=== PATIENT | female | born 1965 | race African-American/Black ===

== ENCOUNTER 2018-04-21 20:01 | Inpatient (IN) | payer MEDICAID ==
[~2018-04-21] VITALS: Ht 165.1 cm; Wt 156.0 kg
[2018-04-21 20:11] VITALS: Ht 165.1 cm; Wt 156.0 kg
[2018-04-21 22:04] LABS: BASOPHIL % 0.2 % (0-2); PLATELET COUNT 249 x10^3mcL (130-400)
[2018-04-21 22:06] LABS: RED CELL DISTRIBUTION WIDTH 16.7 % (11.5-14.5)
[2018-04-21 22:25] LABS: microscopic required? NO
[2018-04-21 22:33] LABS: ALBUMIN 3.4 g/dL (3.4-5.0); ALKALINE PHOSPHATASE 97 U/L (46-116); ALT/SGPT 13 U/L (14-59); AST/SGOT 12 U/L (15-37); BILIRUBIN TOTAL 0.2 mg/dL (0.20-1.00); CALCIUM 10.4 mg/dL (8.5-10.1); CARBON DIOXIDE 27.8 mmol/L (21-32); CHLORIDE SERUM 103 mmol/L (98-107); CREATININE SERUM 0.9 mg/dL (0.6-1.0); GFR1 > 60 mL/min; GLUCOSE SERUM 97 mg/dL (74-106); LIPASE 169 IU/L (73-393); MAGNESIUM 2.1 mg/dL (1.8-2.4); POTASSIUM SERUM 3.8 mmol/L (3.5-5.1); SODIUM SERUM 139 mmol/L (136-145)
[2018-04-21 22:35] LABS: TOTAL PROTEIN, SERUM 8.4 g/dL (6.4-8.2)
[2018-04-21 22:50] LABS: UA SPECIFIC GRAVITY 1.015 (1.005-1.035); urine erythrocyte NEGATIVE (NEGATIVE)
[2018-04-22] MEDS ORDERED: NEU300 (06:25)
[2018-04-22] MEDS ORDERED: TRAZODONE50 M1 PO (06:26)
[2018-04-22] MEDS ORDERED: NORCO1 TA2 PO (06:27)
[2018-04-22 07:52] VITALS: BP 137/52
[2018-04-22 12:22] VITALS: BP 156/79
[2018-04-22 12:34] VITALS: BP 137/52
[2018-04-22 13:21] LABS: AMPHETAMINE QUAL UR NONE DETECTED (See below)
[2018-04-22 13:22] LABS: CHOLESTEROL/HDL RATIO 3.5; MAGNESIUM 1.9 mg/dL (1.8-2.4); PHOSPHOROUS 2.6 mg/dL (2.5-4.9)
[2018-04-22 13:33] LABS: FREE T4 0.93 ng/dL (0.76-1.46); FREE THYROXINE INDEX 1.8 ug/dL (1.4-4.5); T4(THYROXINE) 5.5 ug/dL (4.7-13.3)
[2018-04-22 13:41] LABS: T3 TOTAL 0.96 ng/mL
[2018-04-22 17:24] VITALS: BP 150/69
[2018-04-22 20:39] VITALS: BP 131/69
[2018-04-23 05:21] VITALS: BP 139/70
[2018-04-23 06:31] LABS: CALCIUM 9.3 mg/dL (8.5-10.1); CHLORIDE SERUM 105 mmol/L (98-107); CREATININE SERUM 0.7 mg/dL (0.6-1.0); GFR1 > 60 mL/min; GLUCOSE SERUM 97 mg/dL (74-106); PHOSPHOROUS 3.2 mg/dL (2.5-4.9); POTASSIUM SERUM 4.1 mmol/L (3.5-5.1); SODIUM SERUM 141 mmol/L (136-145)
[2018-04-23 06:35] LABS: BASOPHIL % 0.6 % (0-2); PLATELET COUNT 240 x10^3mcL (130-400)
[2018-04-23 07:24] LABS: RED CELL DISTRIBUTION WIDTH 16.3 % (11.5-14.5)
[2018-04-23 09:30] VITALS: BP 114/68
[2018-04-23 12:57] VITALS: BP 136/78
[2018-04-23 17:54] VITALS: BP 130/81
[2018-04-23 21:04] VITALS: BP 136/69
[2018-04-24 06:08] VITALS: BP 115/79
[2018-04-24 06:21] LABS: BASOPHIL % 0.6 % (0-2); PLATELET COUNT 261 x10^3mcL (130-400)
[2018-04-24 06:24] LABS: CALCIUM 9.7 mg/dL (8.5-10.1); CARBON DIOXIDE 31.4 mmol/L (21-32); CHLORIDE SERUM 105 mmol/L (98-107); CREATININE SERUM 0.7 mg/dL (0.6-1.0); GFR1 > 60 mL/min; GLUCOSE SERUM 96 mg/dL (74-106); PHOSPHOROUS 3.6 mg/dL (2.5-4.9); POTASSIUM SERUM 4.1 mmol/L (3.5-5.1); RED CELL DISTRIBUTION WIDTH 15.6 % (11.5-14.5); SODIUM SERUM 141 mmol/L (136-145)
[2018-04-24 09:05] VITALS: BP 133/100
[2018-04-24 11:39] VITALS: BP 135/63
[2018-04-24] MEDS ORDERED: L20 PO (12:08)
[2018-04-24] MEDS ORDERED: IPRATROPIUM BROM3 M2 HHN (12:08)
[2018-04-24] MEDS ORDERED: COL100 PO (12:09)
[2018-04-24 17:14] VITALS: BP 145/76
[2018-04-24 20:41] VITALS: BP 122/67
[2018-04-25 05:42] VITALS: BP 121/76
[2018-04-25 08:59] VITALS: BP 115/68
[2018-04-25 10:27] LABS: CALCIUM 10.1 mg/dL (8.5-10.1); CARBON DIOXIDE 31.1 mmol/L (21-32); CHLORIDE SERUM 104 mmol/L (98-107); CREATININE SERUM 0.8 mg/dL (0.6-1.0); GFR1 > 60 mL/min; GLUCOSE SERUM 117 mg/dL (74-106); POTASSIUM SERUM 4.3 mmol/L (3.5-5.1); SODIUM SERUM 139 mmol/L (136-145)
[2018-04-25 11:58] VITALS: BP 124/49
[2018-04-25 16:44] VITALS: BP 124/45
[2018-04-25 20:30] VITALS: BP 124/61
[2018-04-26 05:32] VITALS: BP 103/50
[2018-04-26 09:35] VITALS: BP 109/53
[2018-04-26 11:27] LABS: CALCIUM 10.8 mg/dL (8.5-10.1); CHLORIDE SERUM 102 mmol/L (98-107); CREATININE SERUM 0.8 mg/dL (0.6-1.0); GFR1 > 60 mL/min; GLUCOSE SERUM 93 mg/dL (74-106); POTASSIUM SERUM 4.4 mmol/L (3.5-5.1); SODIUM SERUM 137 mmol/L (136-145)
[2018-04-26 11:57] LABS: BASOPHIL % 0.3 % (0-2); PLATELET COUNT 250 x10^3mcL (130-400)
[2018-04-26 11:58] LABS: RED CELL DISTRIBUTION WIDTH 16.8 % (11.5-14.5)
[2018-04-26 12:39] VITALS: BP 130/59
[2018-04-26 17:13] VITALS: BP 129/58
[2018-04-26 20:54] VITALS: BP 135/73
[2018-04-27 04:43] VITALS: BP 120/68
[2018-04-27 08:43] VITALS: BP 121/56
[2018-04-27 13:43] VITALS: BP 122/66
[2018-04-27 16:45] VITALS: BP 125/69
[2018-04-27 20:48] VITALS: BP 144/89
[2018-04-28 05:33] VITALS: BP 117/49
[2018-04-28 08:27] VITALS: BP 115/71
[2018-04-28 09:00] VITALS: BP 115/71
[2018-04-28 13:42] VITALS: BP 110/69
[2018-04-28] MEDS ORDERED: TOR15I IM (15:44)
[2018-04-28 17:06] VITALS: BP 120/77
[2018-04-28 20:29] VITALS: BP 113/62
[2018-04-29 05:06] VITALS: BP 127/65
[2018-04-29 08:48] VITALS: BP 138/83
[2018-04-29 12:38] VITALS: BP 129/52
[2018-04-29] MEDS ORDERED: L20 PO (14:27)
[2018-04-29 15:49] VITALS: BP 129/52
== END 2018-04-29 16:40 | DRG 351 ==
LOC: ED 20:01 → DU 04-22 06:18
PROVIDERS: Emergency Medicine; Family Medicine; Internal Medicine
DX: M17.12 Unilateral primary osteoarthritis, left knee (principal); I50.33 Acute on chronic diastolic (congestive) heart failure; M32.9 Systemic lupus erythematosus, unspecified; R45.851 Suicidal ideations; G62.9 Polyneuropathy, unspecified; E66.01 Morbid (severe) obesity due to excess calories; Z68.43 Body mass index [BMI] 50.0-59.9, adult; D64.9 Anemia, unspecified; F32.9 Major depressive disorder, single episode, unspecified; J45.909 Unspecified asthma, uncomplicated; F14.10 Cocaine abuse, uncomplicated; Z59.0 Homelessness; F17.210 Nicotine dependence, cigarettes, uncomplicated
CPT/HCPCS: 83880; 84439; 94150; 97110-GP; 97116-GP; 97530-GP; G0480; J1885; J7030; Q0092; Q0163